=== PATIENT | male | born 1980 | race African-American/Black ===

== ENCOUNTER 2017-06-23 15:35 | Inpatient (IN) | payer SELFPAY ==
[2017-06-23 16:30] LABS: ADD MAN DIFF? NO
[2017-06-23] MEDS: IV NORMAL SALINE 1000ML BAG 1,000 ML IV ×2 (16:30→19:45)
[2017-06-23 16:32] LABS: BASO % 0 % (0-3); EOS # 0.2 x10^3/uL (0.0-0.7); EOS % 2 % (0-3); HEMATOCRIT 38.8 % (39.0-53.0); HEMOGLOBIN 13.1 g/dL (13.0-17.5); LYMPH # 1.6 x10^3/uL (1.0-4.8); LYMPH % 15 % (24-48); MEAN CORPUSCULAR HEMOGLOBIN 25 pg (25-35); MEAN CORPUSCULAR HGB CONC 34 g/dL (31-37); MEAN CORPUSCULAR VOLUME 75 fL (79-100); MONO # 0.7 x10^3/uL (0.0-1.1); MONO % 7 % (0-9); NEUT # 8.1 x10^3uL (1.8-7.7); NEUT % 76 % (31-73); PLATELET COUNT 275 x10^3/uL (140-400); RED BLOOD COUNT 5.17 x10^6/uL (4.30-5.70); RED CELL DISTRIBUTION WIDTH 14.2 % (11.5-14.5); WHITE BLOOD COUNT 10.6 x10^3/uL (4.0-11.0)
[2017-06-23 16:41] LABS: ANION GAP 8 (6-14); BLOOD UREA NITROGEN 7 mg/dL (8-26); BUN/CREATININE RATIO 8 (6-20); CARBON DIOXIDE 29 mmol/L (21-32); CHLORIDE 101 mmol/L (98-107); CREATININE 0.9 mg/dL (0.7-1.3); GFR 114.9; GLUCOSE 95 mg/dL (70-99); POTASSIUM 3.8 mmol/L (3.5-5.1); SODIUM 138 mmol/L (136-145)
[2017-06-23 16:46] LABS: ALBUMIN 3.7 g/dL (3.4-5.0); ALBUMIN/GLOBULIN RATIO 0.9 (1.0-1.7); ALK PHOS 74 U/L (46-116); ALT (SGPT) 43 U/L (16-63); AST (SGOT) 26 U/L (15-37); LIPASE 115 U/L (73-393); TOTAL BILIRUBIN 0.3 mg/dL (0.2-1.0); TOTAL PROTEIN 7.9 g/dL (6.4-8.2)
[2017-06-23] MEDS ORDERED: CONTRAST GIVEN MC (17:00)
[2017-06-23] MEDS: IOHEXOL 300 MG/ML 100ML VIAL. IV (17:07)
[2017-06-23] MEDS: HYOSCYAMINE 0.125 MG TAB.RAPDIS PO (19:05)
[2017-06-23] MEDS: KETOROLAC 30 MG/ML INJ. IV ×2 (19:05→22:25)
[2017-06-24] MEDS: KETOROLAC 30 MG/ML INJ. IV (04:53)
[2017-06-24] MEDS ORDERED: levOFLOXacin PER PHARMACY. MC (08:15)
[2017-06-24] MEDS ORDERED: traMADol 50 MG TABLET PO (08:15)
[2017-06-24] MEDS ORDERED: ACETAMINOPHEN 500 MG TABLET PO (08:15)
[2017-06-24] MEDS: FAMOTIDINE 20 MG/2 ML VIAL IVP ×2 (09:00→21:02)
[2017-06-24] MEDS: IV NORMAL SALINE 1000ML BAG 1,000 ML IV ×2 (11:25→16:15)
[2017-06-24] MEDS: fentaNYL PF VIAL 100 MCG/2 ML VIAL IV ×2 (14:19→19:25)
[2017-06-24] MEDS: ONDANSETRON PF 4 MG/2 ML VIAL. IV (16:13)
[2017-06-25] MEDS: IV NORMAL SALINE 1000ML BAG 1,000 ML IV ×3 (04:44→22:20)
[2017-06-25] MEDS: FAMOTIDINE 20 MG/2 ML VIAL IVP ×2 (09:21→21:47)
[2017-06-25] MEDS: fentaNYL PF VIAL 100 MCG/2 ML VIAL IV ×3 (09:22→19:28)
[2017-06-25] MEDS: ONDANSETRON PF 4 MG/2 ML VIAL. IV ×2 (09:29→19:27)
[2017-06-25] MEDS: ENOXAPARIN 40 MG/0.4 ML SYRINGE. SQ ×2 (11:57→21:48)
[2017-06-25] MEDS: LACTOBACILLUS RHAMNOSUS GG 1 CAPSULE. PO ×2 (21:00→21:48)
[2017-06-26 05:33] LABS: ADD MAN DIFF? NO
[2017-06-26] MEDS: fentaNYL PF VIAL 100 MCG/2 ML VIAL IV ×3 (05:35→14:22)
[2017-06-26] MEDS: ONDANSETRON PF 4 MG/2 ML VIAL. IV ×2 (05:35→17:36)
[2017-06-26] MEDS ORDERED: fentaNYL PF VIAL 100 MCG/2 ML VIAL IV (06:00)
[2017-06-26 06:20] LABS: BASO # 0.1 x10^3/uL (0.0-0.2); BASO % 1 % (0-3); EOS # 0.2 x10^3/uL (0.0-0.7); EOS % 4 % (0-3); HEMATOCRIT 38.1 % (39.0-53.0); HEMOGLOBIN 12.6 g/dL (13.0-17.5); LYMPH # 1.7 x10^3/uL (1.0-4.8); LYMPH % 33 % (24-48); MEAN CORPUSCULAR HEMOGLOBIN 25 pg (25-35); MEAN CORPUSCULAR HGB CONC 33 g/dL (31-37); MEAN CORPUSCULAR VOLUME 76 fL (79-100); MONO # 0.4 x10^3/uL (0.0-1.1); MONO % 7 % (0-9); NEUT % 55 % (31-73); PLATELET COUNT 278 x10^3/uL (140-400); RED BLOOD COUNT 5.01 x10^6/uL (4.30-5.70); RED CELL DISTRIBUTION WIDTH 14.2 % (11.5-14.5); WHITE BLOOD COUNT 5.4 x10^3/uL (4.0-11.0)
[2017-06-26 06:36] LABS: ANION GAP 10 (6-14); BLOOD UREA NITROGEN 10 mg/dL (8-26); CALCIUM 9.4 mg/dL (8.5-10.1); CARBON DIOXIDE 26 mmol/L (21-32); CHLORIDE 105 mmol/L (98-107); GFR 101.7; GLUCOSE 89 mg/dL (70-99); POTASSIUM 4.7 mmol/L (3.5-5.1); SODIUM 141 mmol/L (136-145)
[2017-06-26] MEDS: IV NORMAL SALINE 1000ML BAG 1,000 ML IV ×2 (08:46→20:15)
[2017-06-26] MEDS: FAMOTIDINE 20 MG/2 ML VIAL IVP ×2 (08:47→21:21)
[2017-06-26] MEDS: LACTOBACILLUS RHAMNOSUS GG 1 CAPSULE. PO ×3 (08:47→21:20)
[2017-06-26] MEDS: ENOXAPARIN 40 MG/0.4 ML SYRINGE. SQ ×2 (08:49→21:21)
[2017-06-26] MEDS ORDERED: CONTRAST GIVEN MC (09:00)
[2017-06-26] MEDS: IOHEXOL 240 MG/ML 50ML VIAL. PO (09:00)
[2017-06-26] MEDS: IOHEXOL 300 MG/ML 100ML VIAL. IV (09:00)
[2017-06-26] MEDS: KETOROLAC 15 MG/ML VIAL. IV (17:37)
[2017-06-27 05:19] LABS: ADD MAN DIFF? NO
[2017-06-27 05:59] LABS: BASO # 0.1 x10^3/uL (0.0-0.2); BASO % 1 % (0-3); EOS # 0.2 x10^3/uL (0.0-0.7); EOS % 4 % (0-3); HEMATOCRIT 38.1 % (39.0-53.0); HEMOGLOBIN 12.6 g/dL (13.0-17.5); LYMPH # 1.9 x10^3/uL (1.0-4.8); LYMPH % 35 % (24-48); MEAN CORPUSCULAR HEMOGLOBIN 25 pg (25-35); MEAN CORPUSCULAR HGB CONC 33 g/dL (31-37); MEAN CORPUSCULAR VOLUME 75 fL (79-100); MONO # 0.4 x10^3/uL (0.0-1.1); MONO % 7 % (0-9); NEUT # 2.9 x10^3uL (1.8-7.7); NEUT % 53 % (31-73); PLATELET COUNT 284 x10^3/uL (140-400); RED BLOOD COUNT 5.08 x10^6/uL (4.30-5.70); RED CELL DISTRIBUTION WIDTH 14.1 % (11.5-14.5); WHITE BLOOD COUNT 5.4 x10^3/uL (4.0-11.0)
[2017-06-27 06:14] LABS: ALBUMIN 3.1 g/dL (3.4-5.0); ALBUMIN/GLOBULIN RATIO 0.8 (1.0-1.7); ALK PHOS 59 U/L (46-116); ALT (SGPT) 28 U/L (16-63); ANION GAP 10 (6-14); AST (SGOT) 20 U/L (15-37); BLOOD UREA NITROGEN 8 mg/dL (8-26); BUN/CREATININE RATIO 9 (6-20); CALCIUM 8.8 mg/dL (8.5-10.1); CARBON DIOXIDE 26 mmol/L (21-32); CHLORIDE 104 mmol/L (98-107); CREATININE 0.9 mg/dL (0.7-1.3); GFR 114.9; GLUCOSE 91 mg/dL (70-99); POTASSIUM 3.6 mmol/L (3.5-5.1); SODIUM 140 mmol/L (136-145); TOTAL BILIRUBIN 0.3 mg/dL (0.2-1.0); TOTAL PROTEIN 6.9 g/dL (6.4-8.2)
[2017-06-27 06:24] LABS: % SAT IRON 36 % (15-34); IRON,SERUM 63 ug/dL (65-175)
[2017-06-27] MEDS: FAMOTIDINE 20 MG/2 ML VIAL IVP ×2 (08:48→20:38)
[2017-06-27] MEDS: IV NORMAL SALINE 1000ML BAG 1,000 ML IV ×2 (08:49→16:48)
[2017-06-27] MEDS: ENOXAPARIN 40 MG/0.4 ML SYRINGE. SQ ×2 (08:54→20:39)
[2017-06-27] MEDS: LACTOBACILLUS RHAMNOSUS GG 1 CAPSULE. PO ×2 (08:54→20:40)
[2017-06-27] MEDS: ONDANSETRON PF 4 MG/2 ML VIAL. IV ×2 (15:25→20:39)
[2017-06-27] MEDS: KETOROLAC 30 MG/ML INJ. IV ×2 (15:25→21:19)
[2017-06-27] MEDS: BENZOCAINE/MENTHOL LOZENGE. PO ×2 (15:39→21:20)
[2017-06-27] MEDS ORDERED: ONDANSETRON PF 4 MG/2 ML VIAL. (20:26)
[2017-06-28] MEDS: IV NORMAL SALINE 1000ML BAG 1,000 ML IV ×3 (02:15→19:34)
[2017-06-28] MEDS: FAMOTIDINE 20 MG/2 ML VIAL IVP ×2 (08:58→21:01)
[2017-06-28] MEDS: ONDANSETRON PF 4 MG/2 ML VIAL. IV ×2 (08:58→17:25)
[2017-06-28] MEDS: LACTOBACILLUS RHAMNOSUS GG 1 CAPSULE. PO ×2 (09:00→21:02)
[2017-06-28] MEDS: KETOROLAC 30 MG/ML INJ. IV (09:05)
[2017-06-28 09:21] LABS: ADD MAN DIFF? NO
[2017-06-28 09:26] LABS: BASO # 0.1 x10^3/uL (0.0-0.2); BASO % 1 % (0-3); EOS # 0.2 x10^3/uL (0.0-0.7); EOS % 3 % (0-3); HEMATOCRIT 40.9 % (39.0-53.0); HEMOGLOBIN 13.3 g/dL (13.0-17.5); LYMPH # 1.8 x10^3/uL (1.0-4.8); LYMPH % 31 % (24-48); MEAN CORPUSCULAR HEMOGLOBIN 25 pg (25-35); MEAN CORPUSCULAR HGB CONC 33 g/dL (31-37); MEAN CORPUSCULAR VOLUME 75 fL (79-100); MONO # 0.4 x10^3/uL (0.0-1.1); MONO % 8 % (0-9); NEUT # 3.4 x10^3uL (1.8-7.7); NEUT % 57 % (31-73); PLATELET COUNT 299 x10^3/uL (140-400); RED BLOOD COUNT 5.46 x10^6/uL (4.30-5.70); RED CELL DISTRIBUTION WIDTH 14.2 % (11.5-14.5); WHITE BLOOD COUNT 5.9 x10^3/uL (4.0-11.0)
[2017-06-28 10:31] LABS: FECAL OB PT NEGATIVE (NEG); NEG OBC FOB NEG; POS OBC FOB POS
[2017-06-28 11:03] LABS: ANION GAP 9 (6-14); BLOOD UREA NITROGEN 6 mg/dL (8-26); CALCIUM 9.1 mg/dL (8.5-10.1); CARBON DIOXIDE 29 mmol/L (21-32); CHLORIDE 103 mmol/L (98-107); GFR 101.7; GLUCOSE 82 mg/dL (70-99); PHOSPHORUS 2.9 mg/dL (2.6-4.7); SODIUM 141 mmol/L (136-145)
[2017-06-28] MEDS: ENOXAPARIN 40 MG/0.4 ML SYRINGE. SQ ×2 (11:41→21:00)
[2017-06-28] MEDS: TPN PER PHARMACY MC (14:09)
[2017-06-28] MEDS: TOTAL PARENTERAL NUTRITION 1,424.9987 ML, AMINO ACIDS 10 % 60 GM, DEXTROSE 70 % IN WATE... IV (21:02)
[2017-06-28 21:14] LABS: C DIFF BY PCR Negative (Negative)
[2017-06-29] MEDS: IV NORMAL SALINE 1000ML BAG 1,000 ML IV ×2 (02:49→13:37)
[2017-06-29 05:30] LABS: ADD MAN DIFF? NO
[2017-06-29 05:40] LABS: BASO # 0.1 x10^3/uL (0.0-0.2); BASO % 1 % (0-3); EOS # 0.2 x10^3/uL (0.0-0.7); EOS % 3 % (0-3); HEMATOCRIT 38.3 % (39.0-53.0); HEMOGLOBIN 12.6 g/dL (13.0-17.5); LYMPH # 1.7 x10^3/uL (1.0-4.8); LYMPH % 29 % (24-48); MEAN CORPUSCULAR HEMOGLOBIN 25 pg (25-35); MEAN CORPUSCULAR HGB CONC 33 g/dL (31-37); MEAN CORPUSCULAR VOLUME 75 fL (79-100); MONO # 0.4 x10^3/uL (0.0-1.1); MONO % 8 % (0-9); NEUT # 3.4 x10^3uL (1.8-7.7); NEUT % 59 % (31-73); PLATELET COUNT 270 x10^3/uL (140-400); RED BLOOD COUNT 5.14 x10^6/uL (4.30-5.70); RED CELL DISTRIBUTION WIDTH 14.1 % (11.5-14.5); WHITE BLOOD COUNT 5.8 x10^3/uL (4.0-11.0)
[2017-06-29 06:07] LABS: ANION GAP 11 (6-14); BLOOD UREA NITROGEN 8 mg/dL (8-26); CALCIUM 9.2 mg/dL (8.5-10.1); CARBON DIOXIDE 23 mmol/L (21-32); CHLORIDE 105 mmol/L (98-107); CREATININE 0.9 mg/dL (0.7-1.3); GFR 114.9; GLUCOSE 81 mg/dL (70-99); MAGNESIUM 1.9 mg/dL (1.8-2.4); PHOSPHORUS 3.3 mg/dL (2.6-4.7); POTASSIUM 3.8 mmol/L (3.5-5.1); SODIUM 139 mmol/L (136-145); TRIGLYCERIDES 107 mg/dL (0-150)
[2017-06-29] MEDS: ENOXAPARIN 40 MG/0.4 ML SYRINGE. SQ ×2 (09:00→21:00)
[2017-06-29] MEDS: FAMOTIDINE 20 MG/2 ML VIAL IVP ×2 (09:52→21:54)
[2017-06-29] MEDS: LACTOBACILLUS RHAMNOSUS GG 1 CAPSULE. PO ×2 (09:52→21:55)
[2017-06-29] MEDS: AMINO AC 3%/ELECTROLYTE/GLYCER 1,000 ML IV (16:00)
[2017-06-29] MEDS: ONDANSETRON ODT 4 MG TAB.RAPDIS. PO (19:24)
[2017-06-30] MEDS: AMINO AC 3%/ELECTROLYTE/GLYCER 1,000 ML IV ×2 (06:02→15:35)
[2017-06-30] MEDS: ENOXAPARIN 40 MG/0.4 ML SYRINGE. SQ ×2 (09:00→21:00)
[2017-06-30] MEDS: LACTOBACILLUS RHAMNOSUS GG 1 CAPSULE. PO ×2 (09:17→21:05)
[2017-06-30] MEDS: FAMOTIDINE 20 MG/2 ML VIAL IVP ×2 (09:17→21:06)
[2017-06-30] MEDS: IV NORMAL SALINE 1000ML BAG 1,000 ML IV (15:36)
[2017-07-01] MEDS: AMINO AC 3%/ELECTROLYTE/GLYCER 1,000 ML IV ×2 (03:15→17:28)
[2017-07-01] MEDS: ENOXAPARIN 40 MG/0.4 ML SYRINGE. SQ ×2 (08:58→21:00)
[2017-07-01] MEDS: LACTOBACILLUS RHAMNOSUS GG 1 CAPSULE. PO ×2 (09:08→21:00)
[2017-07-01] MEDS: FAMOTIDINE 20 MG/2 ML VIAL IVP ×2 (09:09→21:32)
[2017-07-01] MEDS: IV NORMAL SALINE 1000ML BAG 1,000 ML IV (13:37)
[2017-07-01] MEDS: hydrOXYzine PAMOATE 25 MG CAPSULE PO (17:28)
[2017-07-02] MEDS: AMINO AC 3%/ELECTROLYTE/GLYCER 1,000 ML IV (04:15)
[2017-07-02 08:03] LABS: ADD MAN DIFF? NO
[2017-07-02 08:09] LABS: BASO # 0.1 x10^3/uL (0.0-0.2); BASO % 1 % (0-3); EOS # 0.2 x10^3/uL (0.0-0.7); EOS % 3 % (0-3); HEMATOCRIT 42.4 % (39.0-53.0); HEMOGLOBIN 14.2 g/dL (13.0-17.5); LYMPH # 1.5 x10^3/uL (1.0-4.8); LYMPH % 26 % (24-48); MEAN CORPUSCULAR HEMOGLOBIN 25 pg (25-35); MEAN CORPUSCULAR HGB CONC 33 g/dL (31-37); MEAN CORPUSCULAR VOLUME 76 fL (79-100); MONO # 0.4 x10^3/uL (0.0-1.1); MONO % 7 % (0-9); NEUT # 3.7 x10^3uL (1.8-7.7); NEUT % 63 % (31-73); PLATELET COUNT 314 x10^3/uL (140-400); RED CELL DISTRIBUTION WIDTH 14.3 % (11.5-14.5); WHITE BLOOD COUNT 5.8 x10^3/uL (4.0-11.0)
[2017-07-02 08:25] LABS: ALBUMIN 3.5 g/dL (3.4-5.0); ALBUMIN/GLOBULIN RATIO 0.9 (1.0-1.7); ALK PHOS 64 U/L (46-116); ALT (SGPT) 124 U/L (16-63); ANION GAP 9 (6-14); AST (SGOT) 57 U/L (15-37); BLOOD UREA NITROGEN 7 mg/dL (8-26); BUN/CREATININE RATIO 8 (6-20); CALCIUM 9.3 mg/dL (8.5-10.1); CARBON DIOXIDE 26 mmol/L (21-32); CHLORIDE 104 mmol/L (98-107); CREATININE 0.9 mg/dL (0.7-1.3); GFR 114.9; GLUCOSE 88 mg/dL (70-99); POTASSIUM 4.2 mmol/L (3.5-5.1); SODIUM 139 mmol/L (136-145); TOTAL BILIRUBIN 0.3 mg/dL (0.2-1.0); TOTAL PROTEIN 7.3 g/dL (6.4-8.2)
[2017-07-02] MEDS: ENOXAPARIN 40 MG/0.4 ML SYRINGE. SQ (09:00)
[2017-07-02] MEDS: FAMOTIDINE 20 MG/2 ML VIAL IVP (09:34)
[2017-07-02] MEDS: LACTOBACILLUS RHAMNOSUS GG 1 CAPSULE. PO (09:34)
== END 2017-07-02 15:55 | disposition home or self-care (01) | DRG 392 ==
LOC: ER 15:35 → 4 NORTH 19:40
DX: K57.20 Diverticulitis of large intestine with perforation and abscess without bleeding (principal); R65.10 Systemic inflammatory response syndrome (SIRS) of non-infectious origin without acute organ dysfunction; K76.0 Fatty (change of) liver, not elsewhere classified; Z68.41 Body mass index [BMI] 40.0-44.9, adult; K52.9 Noninfective gastroenteritis and colitis, unspecified; E66.9 Obesity, unspecified; Z88.5 Allergy status to narcotic agent; Z88.0 Allergy status to penicillin
CPT/HCPCS: 36415; 74018; 74177; 80048; 80053; 82274; 83540; 83550; 83690; 83735; 84100; 84478; 85025; 87324; 96361; 96365; 96375; 99285; 99285-25; J1650; J1885; J1956; J2405; J3010; J3490; J7030; Q0162; Q0177; Q9966; Q9967; S0028